=== PATIENT | male | born 1995 | race Caucasian/White ===

== ENCOUNTER → 2020-03-25 | Outpatient (REF) | payer OTHER ==
[2020-03-25 19:24] LABS: CHOLESTEROL RISK RATIO 6.121 (<5); FREE T4 0.99 NG/DL (0.76-1.46); THYROID STIMULATING HORMONE 0.954 uIU/ML (0.358-3.740)
== END ==
LOC: M SFHCCLAY 10:59
PROVIDERS: ATTEND Nurse Practitioner Family
DX: I10 Essential (primary) hypertension (principal)